=== PATIENT | male | born 1975 | race Two or more races ===

== ENCOUNTER 2024-01-31 12:51 | Emergency (ER) | payer OTHER ==
[~2024-01-31] VITALS: Ht 170.2 cm; Wt 99.7 kg
[2024-01-31 14:13] VITALS: BP 147/97; PULSE 82; RESP 16; TEMP 98.1; O2SAT 96
[2024-01-31] MEDS: PROMETHAZINE W/CODEINE 5 ML ORAL SYRUP PO ONE (15:43)
[2024-01-31] MEDS ORDERED: BENZ100C97 PO (15:44)
[2024-01-31] MEDS ORDERED: PROM1SOL4 PO (15:44)
[2024-01-31] MEDS ORDERED: AZIT-185 PO (15:44)
== END 2024-01-31 16:00 | disposition home or self-care (01) ==
LOC: ER 12:51
DX: R05.9 Cough, unspecified (principal)
CPT/HCPCS: 71046

== ENCOUNTER 2025-06-02 21:06 | Inpatient (IN) | payer OTHER ==
[~2025-06-02] VITALS: Ht 170.2 cm; Wt 99.9 kg
[~2025-06-02 21:06] MED LIST: AZIT-185 PO; BENZ100C97 PO; PROM1SOL4 PO
[2025-06-02 22:54] LABS: Hematocrit 49.7 % (41.0-53.0); Hemoglobin 17.1 g/dL (13.5-17.5); Mean Corpuscular Hemoglobin 30.7 pg (28.0-32.0); Mean Corpuscular Volume 89.4 fL (80.0-100.0); Nucleated Red Blood Cells % 0.2 %
[2025-06-02 23:13] LABS: Chloride 103 mmol/L (98-107); Potassium 4.4 mmol/L (3.5-5.1); Sodium 139 mmol/L (136-145)
[2025-06-02 23:14] LABS: Anion Gap 10 (5-15); Carbon Dioxide 26 mmol/L (20-31)
[2025-06-02 23:15] LABS: Calcium 9.5 mg/dL (8.7-10.4)
[2025-06-02 23:20] LABS: BUN/Creatinine Ratio 10.1 (10.0-20.0); Blood Urea Nitrogen 14 mg/dL (9-23); Lipase 47 U/L (12-53)
[2025-06-02 23:24] LABS: Glucose 107 mg/dL (74-106)
[2025-06-02 23:26] LABS: Urine Protein, UAD TRACE (Negative)
[2025-06-03] MEDS: ONDANSETRON ODT 4 MG TAB PO ONE (00:27)
[2025-06-03] MEDS: DICYCLOMINE HCL (10MG/ML) 2 ML AMPULE IM ONE (00:30)
[2025-06-03] MEDS: PANTOPRAZOLE 40 MG TAB PO ONE (01:43)
[2025-06-03] MEDS: LIDOCAINE VISCOUS 2% 15ML UD PO ONE (01:44)
[2025-06-03] MEDS: MAALOX PLUS or MAALOX 30 ML PO ONE (01:44)
--- NOTE | 2025-06-03 01:58 | ED.PDOC ---
GI ASSESSMENT HPI Comments Patient is a pleasant but obese 50-year-old male who arrives the ED today for evaluation of epigastric pain that began approximately three days ago and has continued. Patient states the pain has been burning and sharp in his epigastric region. Patient denies any recent travel or definitive new food sources. Patient states intermittent nausea. Patient denies any history of intra- abdominal concerns. Vital signs were stable. Chief Complaint: Abdominal Pain Time Seen by MD: 21:51 Reviewed Notes: Nurses Notes Allergies: Coded Allergies: NO KNOWN ALLERGIES (Unverified , 01/31/24) Home Meds Active Scripts Azithromycin (ZITHROMAX TABLET) 250 Mg Tb, 250 MG PO DAILY for 5 Days, #6 TAB 0 Refills Take 2 tablets on day one then one tablet daily for the remaining course Prov:ERIK FISHER NP 01/31/24 Benzonatate (Benzonatate) 100 Mg Cap, 1 CAP PO TID for 10 Days, #30 CAP 0 Refills Prov:ERIK FISHER NP 01/31/24 Promethazine-Dm (Promethazine Dm 6.25-15 mg/5Ml) 1 Alison Alison, 5 ML PO TIDPRN PRN for 10 Days, #150 ML 0 Refills Prov:ERIK FISHER NP 01/31/24 Information Source: Patient Mode of Arrival: Ambulatory Timing: Days Duration: Since onset Prehospital treatment: None Quality: Aching, Cramping, Sharp Vomitus: None Severity: Moderate Recent: Possible spoiled food Recent Hx of: None Pain Location: Diffuse, Epigastric Modifying Factors: Food Associated sign and symptoms: Nausea Past Medical History PAST MEDICAL HISTORY: Denies Surgical History: Denies all surgeries Family History Family History: Reviewed,noncontributory to illness Social History Smoker: Non-Smoker Alcohol: Denies ETOH Use Drugs: Denies Drug Use Lives In: Home Constitutional: denies: chills, diaphoresis, fatigue, fever, malaise, sweats, weakness, others EENTM: denies: blurred vision, double vision, ear bleeding, ear discharge, ear drainage, ear pain, ear ringing, eye pain, eye redness, hearing loss, mouth pain, mouth swelling, nasal discharge, nose bleeding, nose congestion, nose eusebia n, photophobia, tearing, throat pain, throat swelling, voice changes, others Respiratory: denies: cough, hemoptysis, orthopnea, SOB at rest, shortness of breath, SOB with excertion, stridor, wheezing, others Cardiovascular: denies: chest pain, dizzy spells, diaphoresis, Dyspnea on exertion, edema, irregular heart beat, left arm pain, lightheadedness, palpitations, PND, syncope, others Gastrointestinal: reports: abdominal pain, nausea; denies: abdomen distended, blood streaked bowels, constipated, diarrhea, dysphagia, difficulty swallowing, hematemesis, melena, poor appetite, poor fluid intake, rectal bleeding, rectal pain, vomiting, others Genitourinary: denies: burning, dysuria, flank pain, frequency, hematuria, incontinence, penile discharge, penile sore, pain, testicle pain, testicle swelling, urgency, others Neurological: denies: dizziness, fainting, headache, left sided numbness, left sided weakness, numbness, paresthesia, pre-existing deficit, right sided numbness, right sided weakness, seizure, speech problems, tingling, tremors, weakness, others Musculoskeletal: denies: back pain, gout, joint pain, joint swelling, muscle pain, muscle stiffness, neck pain, others Integumetry: denies: bruises, change in color, change in hair/nails, dryness, laceration, lesions, lumps, rash, wounds, others Allergic/Immunocompromised: denies: Difficulty Healing, Frequent Infections, Hives, Itching, others Hematologic/Lymphatic: denies: anemia, blood clots, easy bleeding, easy bruising, swollen glands, others Endocrine: denies: excessive hunger, excessive sweating, excessive thirst, excessive urination, flushing, intolerance to cold, intolerance to heat, unexplained weight gain, unexplained weight loss, others Psychiatric: denies: anxiety, bipolar disorder, depression, hopeless, panic disorder, schizophrenia, sleepless, suicidal, others Physical Exam General Appearance: Moderate Distress (Moderate distress due to diffuse epigastric pain.), Obese HEENT: Normal ENT Inspection, Pharynx Normal, TMs Normal Neck: Full Range of Motion, Non-Tender, Normal, Normal Inspection Respiratory: Chest Non-Tender, Lungs Clear, No Accessory Muscle Use, No Respiratory Distress, Normal Breath Sounds Cardiovascular: No Edema, No JVD, No Murmur, No Gallop, Normal Peripheral Puls es, Regular Rate/Rhythm Breast Exam: Deferred Gastrointestinal: Other (Diffuse epigastric tenderness to palpation bilaterally. No signs of trauma. Abdomen was mildly rigid.) Genitalia: Deferred Pelvic: Deferred Rectal: Deferred Extremities: No calf tenderness, Normal inspection Neurologic: Alert Cerebellar Function: NOT DONE Reflexes: NOT DONE Skin: Dry, Normal Color, Warm Lymphatic: No Adenopathy Was a procedure done? Was a procedure done?: No GI differential Dx Differential Diagnosis: Gastritis/PUD, Gastroenteritis, Pancreatitis, Other (Constipation) X-Ray, Labs, Meds, VS Vital Signs Date Time Temp Pulse Resp B/P (MAP) Pulse Ox O2 Delivery O2 Flow Rate FiO2 06/03/25 00:33 98.4 92 16 134/83 (100) 97 98.4 06/02/25 21:07 98.7 116 16 131/76 96 98.7 Lab Test 06/02/25 22:41 Range/Units White Blood Count 7.1 4.4-10.8 10^3/uL Red Blood Count 5.57 4.5-5.90 10^6/uL Hemoglobin 17.1 13.5-17.5 g/dL Hematocrit 49.7 41.0-53.0 % Mean Corpuscular Volume 89.4 80.0-100.0 fL Mean Corpuscular Hemoglobin 30.7 28.0-32.0 pg Mean Corpuscular Hemoglobin Concent 34.4 32.0-36.0 g/dL Red Cell Distribution Width 13.8 11.8-14.3 % Platelet Count 301 140-450 10^3/uL Mean Platelet Volume 7.2 6.9-10.8 fL Neutrophils (%) (Auto) 50.0 37.0-80.0 % Lymphocytes (%) (Auto) 32.9 10.0-50.0 % Monocytes (%) (Auto) 14.1 H 0.0-12.0 % Eosinophils (%) (Auto) 2.5 0.0-7.0 % Basophils (%) (Auto) 0.5 0.0-2.0 % Neutrophils # (Auto) 3.6 1.6-8.6 10 ^3/uL Lymphocytes # (Auto) 2.3 0.4-5.4 10 ^3/uL Monocytes # (Auto) 1.0 0-1.3 10 ^3/uL Eosinophils # (Auto) 0.2 0-0.8 10 ^3/uL Basophils # (Auto) 0 0-0.2 10 ^3/uL Nucleated Red Blood Cells 0.2 % Urine Color Yellow Yellow Urine Clarity Clear Clear Urine pH 6.0 5.0-9.0 Urine Specific [place] 1.028 1.001-1.035 Urine Protein Trace H Negative Urine Ketones Negative Negative Urine Blood Negative Negative /uL Urine Nitrite Negative Negative Urine Bilirubin Negative Negative Urine Urobilinogen Normal Negative mg/dL Urine Leukocyte Esterase Negative Negative /uL Urine RBC 1 0 - 3 /hpf Urine Microscopic WBC < 1 0-3 /HPF Urine Squamous Epithelial Cells None seen <5 /hpf Urine Bacteria None seen None Seen /hpf Urine Mucus Few None Seen Urine Glucose Normal Normal mg/dL Sodium Level 139 136-145 mmol/L Potassium Level 4.4 3.5-5.1 mmol/L Chloride Level 103 98-107 mmol/L Carbon Dioxide Level 26 20-31 mmol/L Anion Gap 10 5-15 Blood Urea Nitrogen 14 9-23 mg/dL Creatinine 1.39 H 0.700-1.30 mg/dL Glomerular Filtration Rate Calc 61 >90 mL/min BUN/Creatinine Ratio 10.1 10.0-20.0 Serum Glucose 107 H 74-106 mg/dL Calcium Level 9.5 8.7-10.4 mg/dL Lipase 47 12-53 U/L Current Medications Medications (Trade) Dose Ordered Sig/Marilu Route Start Time Stop Time Status Last Admin Dicyclomine HCl (Bentyl Injection) 20 mg ONCE ONCE IM 06/02/25 22:45 06/02/25 22:46 DC 06/03/25 00:30 Al Hydrox/Mg Hydrox/Simethicone (Maalox Plus) 30 ml ONCE ONCE PO 06/03/25 01:15 06/03/25 01:16 DC 06/03/25 01:44 Lidocaine HCl (Xylocaine 2% Viscous) 3 ml ONCE ONCE PO 06/03/25 01:15 06/03/25 01:16 DC 06/03/25 01:44 Pantoprazole Sodium (Protonix Tablet) 40 mg ONCE ONCE PO 06/03/25 01:15 06/03/25 01:16 DC 06/03/25 01:43 X-Ray, Labs, Meds, VS Comment All studies performed in the ED were evaluated by me personally. Serum studies were unremarkable for any acute systemic concerns including in negative lipase. Patient did not respond well to any medications dispensed and therefore, a CT of the abdomen has been ordered and patient will be admitted for intractable abdominal pain. Time of 1ST Reevaluation: 02:02 Reevaluation 1ST: Improved Consultation: PCP, Surgery Patient Education/Counseling: Diagnosis, Treatment Family Education/Counseling: Diagnosis, Treatment SEPSIS Sepsis Screen Date sepsis recognized/suspect: Jun 02, 2025 Time Sepsis recognized/suspect: 2107 Recent Procedure: No On Antibiotic Therapy: No Respiratory Rate >20: No Heart Rate >90: Yes Temp<36 C (96.8 F) or >38.3 C: No SBP <90 or MAP <65 mmHG: No New Acute Mental Status Change: No Is the patient on CPAP, BIPAP,: No Vital Signs Date Time Temp Pulse Resp B/P (MAP) Pulse Ox O2 Delivery O2 Flow Rate FiO2 06/03/25 00:33 98.4 92 16 134/83 (100) 97 98.4 06/02/25 21:07 98.7 116 16 131/76 96 98.7 Laboratory Tests Test 06/02/25 22:41 White Blood Count 7.1 10^3/uL (4.4-10.8) Medications Medications Dose Ordered Sig/Marilu Route Start Time Stop Time Status Last Admin Dose Admin Al Hydrox/Mg Hydrox/Simethicone 30 ml ONCE ONCE PO 06/03/25 01:15 06/03/25 01:16 DC 06/03/25 01:44 Dicyclomine HCl 20 mg ONCE ONCE IM 06/02/25 22:45 06/02/25 22:46 DC 06/03/25 00:30 Lidocaine HCl 3 ml ONCE ONCE PO 06/03/25 01:15 06/03/25 01:16 DC 06/03/25 01:44 Pantoprazole Sodium 40 mg ONCE ONCE PO 06/03/25 01:15 06/03/25 01:16 DC 06/03/25 01:43 Departure 1 Departure Time of Disposition: 02:02 Impression: Primary Impression: Intractable abdominal pain Disposition: 09 ADMITTED INPATIENT Condition: Fair Discharged With: Self Critical Care Note Critical Care Time?: No Stability Stability form required: No Heart Score Heart Score: Heart Score Response (Comments) Value History N/A 0 EKG N/A 0 Age N/A 0 Risk Factors N/A 0 Troponin N/A 0 Total 0 JOE DO MERGED WITH [facility] Jun 03, 2025 01:57
[2025-06-03] MEDS: HYDROmorphone HCL 2 MG/ML VL/or syr IM ONE (02:15)
[2025-06-03] MEDS: SODIUM CHLORIDE 0.9% 1,000 ML IV SCH (03:30)
[2025-06-03 03:32] VITALS: PULSE 95; RESP 16; O2SAT 95
[2025-06-03] MEDS: IOHEXOL 300 MG/ML 100ML BOTTLE IJ ONE (04:12)
--- NOTE | 2025-06-03 05:26 | DVH ---
Exam: CT CT AB PEL WITH IV CON ONLY History: Diffuse epigastric pain COMPARISON: None Technique: Multidetector spiral CT of the abdomen and pelvis was performed from lung bases to pubic s ymphysis. Intravenous contrast was administered during this examination. Portal venous imaging was o btained. Axial, coronal and sagittal multiplanar reformats were performed by the technologist on a [email or web address] workstation. Radiation Dose : 1. Abdomen/Pelvis: CTDIvol 21.17 mGy, DLP 1303.35 mGy*cm. CONTRAST: Type of contrast: Omniscan 300 Contrast injected: 100 ml Findings: Lung Bases: No acute or significant lung base finding. Mild posterior bibasilar atelectasis. Normal heart size. No pleural or pericardial effusion. Liver: The liver is enlarged, measuring 19.2 cm in craniocaudal dimension.. No focal lesions. Normal hepatic vascular enhancement. Gallbladder and Biliary Tree: Unremarkable Spleen: Unremarkable Pancreas: The pancreas is normal in appearance without focal lesions or abnormal enhancement. Adrenal Glands: Unremarkable Kidneys: No nephrolithiasis or hydronephrosis. 1.5 cm right inferior pole renal cortical cyst. Bladder: Unremarkable Bowel: Small sliding-type hiatal hernia. The stomach is grossly normal in appearance. Moderate circum ferential wall thickening and intramural edema of the terminal ileum consistent with ileitis. Small b owel and colon are otherwise normal in caliber and distribution. The appendix is equivocal, measuring 7 mm in diameter and appearing fluid-filled. No significant periappendiceal inflammatory changes. Ascites: Absent Lymphadenopathy: No mesenteric, retroperitoneal or periportal lymphadenopathy. Abdominal Wall and Mesentery: Unremarkable. Vasculature: The visualized abdominal aorta is normal in size and caliber. Atherosclerotic vascular c alcifications.8 Abdominal and pelvic vessels demonstrate normal enhancement. Pelvic Organs: Unremarkable Musculoskeletal: No aggressive focal bony lesions, acute fractures or dislocation. IMPRESSION: 1. Moderate circumferential wall thickening and intramural edema of the terminal ileum consistent wit h terminal ileitis. 2. Equivocal appendix measuring 7 mm in diameter and appearing fluid-filled. No significant periappe ndiceal inflammatory changes. 3. Small sliding-type hiatal hernia. 4. Hepatomegaly. Radiation optimization: All CT scans at this facility use at least one of these dose optimization angie hniques: automated exposure control mA and/or kV adjustment per patient size (includes targeted exam s where dose is matched to clinical indication) or iterative reconstruction.
[2025-06-03 06:21] LABS: Hematocrit 47.7 % (41.0-53.0); Hemoglobin 16.5 g/dL (13.5-17.5); Mean Corpuscular Hemoglobin 30.9 pg (28.0-32.0); Mean Corpuscular Volume 89.7 fL (80.0-100.0); Nucleated Red Blood Cells % 0.4 %
[2025-06-03 06:24] LABS: Chloride 103 mmol/L (98-107); Potassium 4.1 mmol/L (3.5-5.1); Sodium 136 mmol/L (136-145)
[2025-06-03 06:25] LABS: Anion Gap 9 (5-15); Carbon Dioxide 24 mmol/L (20-31)
--- NOTE | 2025-06-03 06:25 | DVHHPRES ---
History of Present Illness Resident Creating Document: MAYKEL OLIVIER History of Present Illness Mr. Ramos is a 50-year-old male with prior medical history of prediabetes, atrial fibrillation status post ablation 2 months ago, hypertension, hyperlipidemia, and untreated hepatitis-C, who presents today with chief complaint of abdominal pain. The patient states he had onset of abdominal pain 4 days ago after consumption of [place] food. He describes this pain as constant, sharp in epigastric region, non-radiating, 10/10 intensity, associated with watery diarrhea, aggravated by eating and without relieving factors. he denies nausea, vomiting, bloody stools, bloody vomit, fever, dysuria, chest pain, and other symptoms. Due to persistence of the symptoms the patient presented for evaluation in the emergency room. On evaluation in the ED, the patient was in moderate distress, tachycardic, and hypertensive. Initial labs show CBC within normal range and elevated creatinine. Abdominal CT shows moderate circumferential wall thickening and intramural edema of the terminal ileum consistent with terminal ileitis. The patient was started on IV fluids and IV antibiotics. He is admitted for further workup and monitoring. Personal history: Prediabetes, AFib status post ablation 2 months ago, hypertension, hyperlipidemia, untreated hep C Surgical history: Denies Allergies: Denies Social history: States he used marijuana, meth, and heroin for approximately 30 years with cessation 5 years ago, refers occasional alcohol use, states he smoked a pack a day for 35 years quit 4 years ago however continues to use a nicotine vape multiple times a day. He lives with his fiance Marcia and feels safe. Review of Systems Review of Systems Constitutional: Denies weight loss, fever and chills. HEENT: Denies changes in vision and hearing. Respiratory: Denies shortness of breath and cough Cardiovascular: Denies chest discomfort or palpitations GI: Refers abdominal pain and diarrhea Denies abdominal distention : Denies dysuria and urinary frequency. Musculoskeletal: Denies Skin: Denies rash and pruritus. Neurological: denies dizziness headache vision or hearing problems Allergies: Coded Allergies: NO KNOWN ALLERGIES (Unverified , 01/31/24) Medications Current Medications Medications Dose Ordered Sig/Marilu Route Start Time Stop Time Status Last Admin Dose Admin Sodium Chloride 1,000 ml @ 100 mls/hr Q10H IV 06/03/25 03:30 06/03/25 03:30 100 MLS/HR Metronidazole 100 ml @ 100 mls/hr Q8HR IV 06/03/25 03:30 06/03/25 03:51 100 MLS/HR Ceftriaxone Sodium 50 ml @ 100 mls/hr DAILY@09 IV 06/03/25 03:30 06/03/25 03:51 100 MLS/HR Enoxaparin Sodium 100 mg Q12HR SC 06/03/25 10:00 UNV Exam Vital Signs Vital Signs Date Time Temp Pulse Resp B/P (MAP) Pulse Ox O2 Delivery O2 Flow Rate FiO2 06/03/25 04:53 98.5 93 18 114/74 (87) 98 98.5 06/03/25 03:32 Room Air* 0 21 Exam General: The patient alert and oriented in person place and time. Patient following commands HEENT: Normocephalic, atraumatic, normal reactive pupils, right eye shows esotropia, EOM intact, pink conjunctiva, pink moist mucous membrane Respiratory/pulmonary: Bilateral chest expansion, no pain on palpation of chest wall, clear lungs bilaterally, vesicular murmurs present in almost all lung jimenez, no associated crackles or wheezes. Cardiovascular: Normal RRR, normal S1 and S2, no murmurs Abdomen: Abdomen nondistended, hyperactive bowel sounds, soft, pain to palpation of epigastrium and left upper quadrant, no palpable masses. Extremities: No deformities, there is no peripheral edema present at the lower extremities, normal pulses Skin: No rashes or pruritus, there is no sacral edema present at this time. Neurological: Intact cranial nerves with no focal neurologic deficits Labs/Xrays Labs Test 06/03/25 05:51 06/02/25 22:41 Range/Units Eosinophils (%) (Auto) 2.5 0.0-7.0 % Eosinophils # (Auto) 0.2 0-0.8 10 ^3/uL Basophils # (Auto) 0 0-0.2 10 ^3/uL Nucleated Red Blood Cells 0.2 % Urine Color Yellow Yellow Urine Clarity Clear Clear Urine pH 6.0 5.0-9.0 Urine Specific [place] 1.028 1.001-1.035 Urine Protein Trace H Negative Urine Ketones Negative Negative Urine Blood Negative Negative /uL Urine Nitrite Negative Negative Urine Bilirubin Negative Negative Urine Urobilinogen Normal Negative mg/dL Urine Leukocyte Esterase Negative Negative /uL Urine RBC 1 0 - 3 /hpf Urine Microscopic WBC < 1 0-3 /HPF Urine Squamous Epithelial Cells None seen <5 /hpf Urine Bacteria None seen None Seen /hpf Urine Mucus Few None Seen Urine Glucose Normal Normal mg/dL Lipase 47 12-53 U/L SEPSIS Sepsis Screen Date sepsis recognized/suspect: Jun 02, 2025 Time Sepsis recognized/suspect: 2107 Recent Procedure: No On Antibiotic Therapy: No Respiratory Rate >20: No Heart Rate >90: Yes Temp<36 C (96.8 F) or >38.3 C: No SBP <90 or MAP <65 mmHG: No New Acute Mental Status Change: No Is the patient on CPAP, BIPAP,: No Physician Orders Ct Ab Pel With Iv Con Only (06/03/25 02:05) Heplock Iv (06/03/25 ) Drug Screen (06/03/25 02:36) Hemoglobin A1c (06/03/25 02:36) Phosphorus (06/03/25 02:36) Magnesium (06/03/25 02:36) Lactic Acid W/ Reflex Order (06/03/25 02:36) Vitamin B12 (06/03/25 02:36) Vitamin D, 25-Hydroxy (06/03/25 02:36) Hepatic Panel (06/03/25 02:36) Thyroid Stimulating Hormone (06/03/25 02:36) Complete Blood Count (06/03/25 04:00) Basic Metabolic Panel (06/03/25 04:00) Admit (06/03/25 03:19) Allergies (06/03/25 03:19) Code Status (06/03/25 03:19) Full Liq Diet (06/03/25 Breakfast) Condition: Stable (06/03/25 03:19) Stat Ekg For Chest Pain (06/03/25 03:19) Notify Md Of Changes From Base (06/03/25 03:19) Emergency Dysrhythmia Protocol (06/03/25 03:19) Rhythm Strips Once Every Shift (06/03/25 03:19) Sodium Chloride 0.9% (06/03/25 03:30) Metronidazole 500mg/100ml (Flagyl 500mg/ (06/03/25 03:30) Ceftriaxone 1gm/50ml (Rocephin) (06/03/25 03:30) Stool Wbc (06/03/25 03:19) Stool Bacterial Culture (06/03/25 03:19) Clostridium Difficile Toxin (06/03/25 05:33) Ova & Parasite Exam (06/03/25 05:33) Blood Culture (06/03/25 05:33) Enoxaparin Sodium (Lovenox) (06/03/25 10:00) Vital Signs Date Time Temp Pulse Resp B/P (MAP) Pulse Ox O2 Delivery O2 Flow Rate FiO2 06/03/25 04:53 98.5 93 18 114/74 (87) 98 98.5 06/03/25 03:32 95 16 95 Room Air* 0 21 06/03/25 03:32 98.2 95 16 129/91 (104) 96 98.2 06/03/25 02:15 95 16 129/91 06/03/25 00:33 98.4 92 16 134/83 (100) 97 98.4 Laboratory Tests Test 06/02/25 22:41 06/03/25 05:51 White Blood Count 7.1 10^3/uL (4.4-10.8) Pending Lactic Acid Level Pending Medications Medications Dose Ordered Sig/Marilu Route Start Time Stop Time Status Last Admin Dose Admin Al Hydrox/Mg Hydrox/Simethicone 30 ml ONCE ONCE PO 06/03/25 01:15 06/03/25 01:16 DC 06/03/25 01:44 30 ML Ceftriaxone Sodium 50 ml @ 100 mls/hr DAILY@09 IV 06/03/25 03:30 06/03/25 03:51 100 MLS/HR Dicyclomine HCl 20 mg ONCE ONCE IM 06/02/25 22:45 06/02/25 22:46 DC 06/03/25 00:30 20 MG Hydromorphone HCl 1 mg ONCE ONCE IM 06/03/25 02:15 06/03/25 02:16 DC 06/03/25 02:15 1 MG Lidocaine HCl 3 ml ONCE ONCE PO 06/03/25 01:15 06/03/25 01:16 DC 06/03/25 01:44 3 ML Metronidazole 100 ml @ 100 mls/hr Q8HR IV 06/03/25 03:30 06/03/25 03:51 100 MLS/HR Pantoprazole Sodium 40 mg ONCE ONCE PO 06/03/25 01:15 06/03/25 01:16 DC 06/03/25 01:43 40 MG Sodium Chloride 1,000 ml @ 100 mls/hr Q10H IV 06/03/25 03:30 06/03/25 03:30 100 MLS/HR Assessment/Plan Assessment/Plan Assessment and Plan: Intractable abdominal pain secondary to Possible infectious Ileitis - Abdominal CT: Moderate circumferential wall thickening and intramural edema of the terminal ileum consistent with terminal ileitis - Ceftriaxone 1 g IV daily - Metronidazole 500 mg IV q.8 hours - NS maintenance 100 cc/hour - NPO - Stool cultures have been ordered - C diff studies ordered - Blood cultures have been ordered - Recommend avoiding opiates due to ileus Hiatal hernia Untreated hepatitis-C - Abdominal CT: Small sliding-type hiatal hernia - Evaluate necessity of GI consult for follow up in completing treatment. MAIN likely due to VMN/hemodynamically mediated - IV fluids - Monitor renal function - Avoid nephrotoxic drugs Paroxysmal atrial fibrillation - Status post ablation - Lovenox therapeutic dose (1 mg/kg) - Diltiazem 120 mg PO daily Hypertension - Monitor BP - Lisinopril 10 mg PO daily - Hydrochlorothiazide 25 mg p.o. daily Prediabetes - HbA1c pending Hyperlipidemia Tobacco use /nicotine dependence - I have counseled on the importance of complete smoking cessation for over 12 minutes - Nicotine patches Obesity, BMI 34.5 kg/m2 - I have counseled the patient on healthy lifestyle modification Diet: NPO DVT prophylaxis: The patient is on Lovenox therapeutic dose GI prophylaxis: Pantoprazole will be held until C diff is ruled out Case discussed with Dr. Jones Goals of care discussed patient for over 27 minutes. Full code Plan discussed with: Patient, Other (Nurses) My Orders Orders - MAYKEL OLIVIER RESIDENT Procedure Category Date Status Time Drug Screen LAB 06/03/25 Logged 02:36 Hemoglobin A1c LAB 06/03/25 In Process 02:36 Phosphorus LAB 06/03/25 In Process 02:36 Magnesium LAB 06/03/25 In Process 02:36 Lactic Acid W/ Reflex LAB 06/03/25 In Process Order 02:36 Vitamin B12 LAB 06/03/25 In Process 02:36 Vitamin D, 25-Hydroxy LAB 06/03/25 In Process 02:36 Hepatic Panel LAB 06/03/25 In Process 02:36 Thyroid Stimulating LAB 06/03/25 In Process Hormone 02:36 Complete Blood Count LAB 06/03/25 In Process 04:00 Basic Metabolic Panel LAB 06/03/25 In Process 04:00 Admit ADMIT 06/03/25 Transmitted 03:19 Allergies MELLISSA 06/03/25 In Process 03:19 Code Status CODE 06/03/25 Transmitted 03:19 Full Liq Diet DIET 06/03/25 Transmitted Breakfast Condition: Stable [facility] 06/03/25 In Process 03:19 Stat Ekg For Chest [facility] 06/03/25 In Process Pain 03:19 Notify Md Of Changes [facility] 06/03/25 In Process From Base 03:19 Emergency Dysrhythmia [facility] 06/03/25 In Process Protocol 03:19 Rhythm Strips Once [facility] 06/03/25 In Process Every Shift 03:19 Sodium Chloride 0.9% PHA 06/03/25 In Process 03:30 Metronidazole PHA 06/03/25 In Process 500mg/100ml (Flagyl 03:30 Ceftriaxone 1gm/50ml PHA 06/03/25 In Process (Rocephin) 03:30 Stool Wbc LAB 06/03/25 Logged 03:19 Stool Bacterial KATHY 06/03/25 Logged Culture 03:19 Date of Service: Jun 03, 2025 Billing Provider: GIBSON JONES MD Common Visit Codes: [id number] INP/OBS CARE (HIGH) Secondary Visit Codes: [id number] CARE PLAN 30 MINUTES MAYKEL OLIVIER RESIDENT Jun 03, 2025 06:25 LEOPOLDO PANTOJA RESIDENT Jun 03, 2025 08:38
[2025-06-03 06:27] LABS: Calcium 8.4 mg/dL (8.7-10.4)
[2025-06-03 06:31] LABS: Albumin 4.5 g/dL (3.2-4.8); Alkaline Phosphatase 47.0 U/L (46-116); BUN/Creatinine Ratio 9.8 (10.0-20.0); Blood Urea Nitrogen 13 mg/dL (9-23); Magnesium 2.0 mg/dL (1.6-2.6); Total Protein 7.4 g/dL (5.7-8.2)
[2025-06-03 06:32] LABS: Bilirubin, Total 0.8 mg/dL (0.2-1.0)
[2025-06-03 06:36] LABS: Alanine Aminotransferase 220.0 U/L (7-40); Bilirubin, Direct 0.4 mg/dL (<0.3); Glucose 111 mg/dL (74-106)
[2025-06-03 07:34] VITALS: BP 115/84; PULSE 92; RESP 16; TEMP 97.6; O2SAT 94
--- NOTE | 2025-06-03 09:28 | DVHDSRES ---
Discharge Summary Date of Admission Resident Creating Document: MAYKEL OLIVIER RESIDENT Jun 03, 2025 at 03:19 Date of Discharge: Jun 03, 2025 Admitting Diagnosis Acute Gastroenteritis Wounds: No wounds Labs/Diagnostic Data: Laboratory Results Test 06/03/25 05:51 06/02/25 22:41 White Blood Count 6.6 10^3/uL (4.4-10.8) Red Blood Count 5.32 10^6/uL (4.5-5.90) Hemoglobin 16.5 g/dL (13.5-17.5) Hematocrit 47.7 % (41.0-53.0) Mean Corpuscular Volume 89.7 fL (80.0-100.0) Mean Corpuscular Hemoglobin 30.9 pg (28.0-32.0) Mean Corpuscular Hemoglobin Concent 34.5 g/dL (32.0-36.0) Red Cell Distribution Width 13.8 % (11.8-14.3) Platelet Count 288 10^3/uL (140-450) Mean Platelet Volume 7.1 fL (6.9-10.8) Neutrophils (%) (Auto) 61.7 % (37.0-80.0) Lymphocytes (%) (Auto) 23.3 % (10.0-50.0) Monocytes (%) (Auto) 13.3 % (0.0-12.0) Eosinophils (%) (Auto) 1.4 % (0.0-7.0) Basophils (%) (Auto) 0.3 % (0.0-2.0) Neutrophils # (Auto) 4.1 10 ^3/uL (1.6-8.6) Lymphocytes # (Auto) 1.5 10 ^3/uL (0.4-5.4) Monocytes # (Auto) 0.9 10 ^3/uL (0-1.3) Eosinophils # (Auto) 0.1 10 ^3/uL (0-0.8) Basophils # (Auto) 0 10 ^3/uL (0-0.2) Nucleated Red Blood Cells 0.4 % Sodium Level 136 mmol/L (136-145) Potassium Level 4.1 mmol/L (3.5-5.1) Chloride Level 103 mmol/L (98-107) Carbon Dioxide Level 24 mmol/L (20-31) Anion Gap 9 (5-15) Blood Urea Nitrogen 13 mg/dL (9-23) Creatinine 1.32 mg/dL (0.700-1.30) Glomerular Filtration Rate Calc 65 mL/min (>90) BUN/Creatinine Ratio 9.8 (10.0-20.0) Serum Glucose 111 mg/dL (74-106) Hemoglobin A1c 5.9 % A1C (<5.7) Lactic Acid Level 1.1 mmol/L (0.4-2.0) Calcium Level 8.4 mg/dL (8.7-10.4) Phosphorus Level 2.9 mg/dL (2.4-5.1) Magnesium Level 2.0 mg/dL (1.6-2.6) Total Bilirubin 0.8 mg/dL (0.2-1.0) Direct Bilirubin 0.4 mg/dL (<0.3) Aspartate Amino Transferase (AST) 95 U/L (13-40) Alanine Aminotransferase (ALT) 220 U/L (7-40) Alkaline Phosphatase 47 U/L (46-116) Total Protein 7.4 g/dL (5.7-8.2) Albumin 4.5 g/dL (3.2-4.8) Vitamin B12 Level 402 pg/mL (211-911) Vitamin D 25-Hydroxy 45.7 ng/mL (30.0-100) Thyroid Stimulating Hormone (TSH) 3.85 uIU/mL (0.55-4.78) Urine Color Yellow (Yellow) Urine Clarity Clear (Clear) Urine pH 6.0 (5.0-9.0) Urine Specific Moffat 1.028 (1.001-1.035) Urine Protein Trace (Negative) Urine Ketones Negative (Negative) Urine Blood Negative /uL (Negative) Urine Nitrite Negative (Negative) Urine Bilirubin Negative (Negative) Urine Urobilinogen Normal mg/dL (Negative) Urine Leukocyte Esterase Negative /uL (Negative) Urine RBC 1 /hpf (0 - 3) Urine Microscopic WBC < 1 /HPF (0-3) Urine Squamous Epithelial Cells None seen /hpf (<5) Urine Bacteria None seen /hpf (None Seen) Urine Mucus Few (None Seen) Urine Glucose Normal mg/dL (Normal) Lipase 47 U/L (12-53) Other Laboratory Tests 06/03/25 05:51 Brief Hx & Hospital Course: Mr. Ramos is a 50-year-old male with prior medical history of prediabetes, atrial fibrillation status post ablation 2 months ago, hypertension, hyperlipidemia, and untreated hepatitis-C, who presents today with chief complaint of abdominal pain. The patient states he had onset of abdominal pain 4 days ago after consumption of [place] food. He describes this pain as constant, sharp in epigastric region, non-radiating, 10/10 intensity, associated with watery diarrhea, aggravated by eating and without relieving factors. he denies nausea, vomiting, bloody stools, bloody vomit, fever, dysuria, chest pain, and other symptoms. Due to persistence of the symptoms the patient presented for evaluation in the emergency room. On evaluation in the ED, the patient was in moderate distress, tachycardic, and hypertensive. Initial labs show CBC within normal range and elevated creatinine. Abdominal CT shows moderate circumferential wall thickening and intramural edema of the terminal ileum consistent with terminal ileitis. The patient was started on IV fluids and IV antibiotics. He is admitted for further workup and monitoring. he patient was placed on NPO for bowel rest, IV fluids, and IV antibiotics. He was admitted for further work up and management. The patient stated that he wished to go AMA. The risks of leaving and benefit of staying for further monitoring were explained on multiple occasions. The patient stated that he understood the risks and still wished to leave. The patient was advised that he could return to the ED at any point should his symptoms worsen. The patient signed his AMA and subsequently left. Physical Exam General: The patient alert and oriented in person place and time. Patient following commands HEENT: Normocephalic, atraumatic, normal reactive pupils, right eye shows esotropia, EOM intact, pink conjunctiva, pink moist mucous membrane Respiratory/pulmonary: Bilateral chest expansion, no pain on palpation of chest wall, clear lungs bilaterally, vesicular murmurs present in almost all lung jimenez, no associated crackles or wheezes. Cardiovascular: Normal RRR, normal S1 and S2, no murmurs Abdomen: Abdomen nondistended, hyperactive bowel sounds, soft, pain to palpation of epigastrium and left upper quadrant, no palpable masses. Extremities: No deformities, there is no peripheral edema present at the lower extremities, normal pulses Skin: No rashes or pruritus, there is no sacral edema present at this time. Neurological: Intact cranial nerves with no focal neurologic deficits Case discussed with Dr. Jones Goals and benefit of care and risks of leaving were discussed with the patient, who states he understands the risk and will go AMA. Operations or Procedures Exam: CT CT AB PEL WITH IV CON ONLY History: Diffuse epigastric pain COMPARISON: None Technique: Multidetector spiral CT of the abdomen and pelvis was performed from lung bases to pubic symphysis. Intravenous contrast was administered during this examination. Portal venous imaging was obtained. Axial, coronal and sagittal multiplanar reformats were performed by the technologist on a separate workstation. Radiation Dose : 1. Abdomen/Pelvis: CTDIvol 21.17 mGy, DLP 1303.35 mGy*cm. CONTRAST: Type of contrast: Omniscan 300 Contrast injected: 100 ml Findings: Lung Bases: No acute or significant lung base finding. Mild posterior bibasilar atelectasis. Normal heart size. No pleural or pericardial effusion. Liver: The liver is enlarged, measuring 19.2 cm in craniocaudal dimension.. No focal lesions. Normal hepatic vascular enhancement. Gallbladder and Biliary Tree: Unremarkable Spleen: Unremarkable Pancreas: The pancreas is normal in appearance without focal lesions or abnormal enhancement. Adrenal Glands: Unremarkable Kidneys: No nephrolithiasis or hydronephrosis. 1.5 cm right inferior pole renal cortical cyst. Bladder: Unremarkable Bowel: Small sliding-type hiatal hernia. The stomach is grossly normal in appearance. Moderate circumferential wall thickening and intramural edema of the terminal ileum consistent with ileitis. Small bowel and colon are otherwise normal in caliber and distribution. The appendix is equivocal, measuring 7 mm in diameter and appearing fluid-filled. No significant periappendiceal inflammatory changes. Ascites: Absent Lymphadenopathy: No mesenteric, retroperitoneal or periportal lymphadenopathy. Abdominal Wall and Mesentery: Unremarkable. Vasculature: The visualized abdominal aorta is normal in size and caliber. Atherosclerotic vascular calcifications.8 Abdominal and pelvic vessels demonstrate normal enhancement. Pelvic Organs: Unremarkable Musculoskeletal: No aggressive focal bony lesions, acute fractures or dislocation. IMPRESSION: 1. Moderate circumferential wall thickening and intramural edema of the terminal ileum consistent with terminal ileitis. 2. Equivocal appendix measuring 7 mm in diameter and appearing fluid-filled. No significant periappendiceal inflammatory changes. 3. Small sliding-type hiatal hernia. 4. Hepatomegaly. Condition at Discharge: Undetermined Final Diagnosis/Problems List Intractable abdominal pain secondary to Ileitis Hiatal hernia Untreated hepatitis-C MAIN likely due to VMN/hemodynamically mediated Paroxysmal atrial fibrillation Hypertension Prediabetes Hyperlipidemia Tobacco use /nicotine dependence Obesity, BMI 34.5 kg/m2 Discharge Disposition: AMA Discharge Instruct/Medications Scheduled Azithromycin (Zithromax Tablet), 250 MG PO DAILY Benzonatate (Benzonatate), 1 CAP PO TID Scheduled PRN Promethazine-Dm (Promethazine Dm 6.25-15 mg/5Ml), 5 ML PO TIDPRN PRN Discharge Statement: "Patient was advised to return to the ER or call 911 if any headaches, dizziness, shortness of breath, chest pain, abdominal pain, bleeding, fevers, or worsening of medical condition. Patient was counseled about treatment plan, medications, possible side effects, patientverbalized understanding. All questions were answered to the best of my ability. This discharge took greater then 30 minutes in planning, reviewing documentation, counseling the patient, and discussing with other team members." ASSESSMENT ASSESSMENT Assessment Date of Service: Jun 03, 2025 Billing Provider: GIBSON JONES MD Common Visit Codes: 79363-YDS/OBS DISCH DAY >30min MAYKEL OLIVIER RESIDENT Jun 03, 2025 09:28 LEOPOLDO PANTOJA RESIDENT Jun 03, 2025 11:53 GIBSON JONES MD Jun 14, 2025 15:48
[2025-06-03] MEDS ORDERED: LISINOPRIL 5 MG TAB PO SCH (10:00)
[2025-06-03] MEDS ORDERED: ENOXAPARIN SOD 100 MG/1 ML SYRINGE SC SCH (10:00)
[2025-06-03] MEDS ORDERED: NICOTINE 7MG/24HR TOPICAL PATCH TD SCH (10:00)
[2025-06-03] MEDS ORDERED: PANTOPRAZOLE 40 MG/10 ML VIAL INJ IV SCH (10:00)
[2025-06-03] MEDS ORDERED: hydroCHLOROthiazide 25 MG TAB PO SCH (10:00)
[2025-06-03] MEDS ORDERED: dilTIAZem 120MG ER CAP PO SCH (10:00)
== END 2025-06-03 08:00 | disposition left against medical advice (07) | DRG 249 ==
LOC: ER 21:06 → OVERFLOW 06-03 03:19
PROVIDERS: ATTEND Physician Assistant
DX: A09 Infectious gastroenteritis and colitis, unspecified (principal); N17.0 Acute kidney failure with tubular necrosis; B19.20 Unspecified viral hepatitis C without hepatic coma; K44.9 Diaphragmatic hernia without obstruction or gangrene; I48.0 Paroxysmal atrial fibrillation; I10 Essential (primary) hypertension; E78.5 Hyperlipidemia, unspecified; R73.03 Prediabetes; E66.9 Obesity, unspecified; Z53.29 Procedure and treatment not carried out because of patient's decision for other reasons; Z68.34 Body mass index [BMI] 34.0-34.9, adult; Z87.891 Personal history of nicotine dependence
CPT/HCPCS: 36415; 74177; 80048; 80076; 81001; 82306; 82607; 83036; 83605; 83690; 83735; 84100; 84443; 85025; 96365; 96368; 96372; G0378; J3490; Q0162